=== PATIENT | female | born 1965 | race Caucasian/White ===

== ENCOUNTER 2017-02-03 07:08 | Day surgery (SDC) | payer BC ==
[~2017-02-03] VITALS: Ht 170.2 cm; Wt 75.8 kg
[2017-02-03] MEDS ORDERED: ACID CONTROL150 MG PO (07:26)
--- NOTE | 2017-02-03 08:48 | NUR ---
02/03/17 0848 Heidi Christianson 0850 PATIENT IS SLEEPING ON ARRIVAL TO PACU. RESPONDS TO VERBAL STIMULI THEN BACK TO SLEEP. WEARING NC AT 3 LITERS.
--- NOTE | 2017-02-03 13:46 | NUR ---
PT RESTING, ALERT AND ORIENTED. GOOD SENSE OF HUMOR, SEEMED PREPPED AND RELAXED. PT DECLINED PRAYER SAYING, "MY MOM HAS ME COVERED".
== END 2017-02-03 09:10 | disposition home or self-care (01) ==
LOC: OPS 07:08 → DS 07:08 → OPS 08:15
PROVIDERS: Colon & Rectal Surgery
PROC: 0DB28ZX Excision of Middle Esophagus, Via Natural or Artificial Opening Endoscopic, Diagnostic (ICD-10-PCS; 2017-02-03)
PROC: 0DB78ZX Excision of Stomach, Pylorus, Via Natural or Artificial Opening Endoscopic, Diagnostic (ICD-10-PCS; 2017-02-03)
PROC: 0DB68ZX Excision of Stomach, Via Natural or Artificial Opening Endoscopic, Diagnostic (ICD-10-PCS; 2017-02-03)
PROC: 0DB98ZX Excision of Duodenum, Via Natural or Artificial Opening Endoscopic, Diagnostic (ICD-10-PCS; principal; 2017-02-03 08:15)
DX: K29.50 Unspecified chronic gastritis without bleeding (principal); K44.9 Diaphragmatic hernia without obstruction or gangrene; M19.90 Unspecified osteoarthritis, unspecified site; Z98.51 Tubal ligation status; F17.210 Nicotine dependence, cigarettes, uncomplicated; Z88.1 Allergy status to other antibiotic agents; Z88.5 Allergy status to narcotic agent; Z90.89 Acquired absence of other organs; Z98.890 Other specified postprocedural states; Z79.899 Other long term (current) drug therapy
CPT/HCPCS: 86677; 99152; 99153; J2250; J3010; J7120